=== PATIENT | female | born 1945 | race Caucasian/White ===

== ENCOUNTER → 2018-02-11 07:39 | Outpatient (CLI) | payer MEDICARE, BC, SELFPAY ==
[2018-02-11 07:57] LABS: Abs Immature Grans 0.02 k/cumm (0.0-0.09); Absolute Basophil Count 0.02 k/cumm (0.0-0.2); Absolute Lymphocyte Count 0.68 k/cumm (1.2-3.4); Absolute Monocyte Count 0.59 k/cumm (0.11-0.7); Absolute Neutrophil Count 4.96 k/cumm (1.2-6.7); Basophils % 0.3; Eosinophils % 1.6; HCT 40.6 % (36.0-46.0); HGB 13.4 g/dL (12.0-15.5); Immature Grans % 0.3; Lymphocytes % 10.7; Monocytes % 9.3; Neutrophils % 77.8; Platelet Count 293 x1000/uL (130-400); RBC 4.32 m/cumm (4.00-5.20); White Blood Cell Count 6.37 k/cumm (4.4-10.8)
[2018-02-11 08:10] LABS: ALT 20 U/L (12-78); AST 13 U/L (15-37); Alkaline Phosphatase 91 U/L (46-116); Anion Gap 8.8 mmol/L (3-11); BUN 19 mg/dL (7-18); Bilirubin, Total 0.4 mg/dL (0.2-1.0); CO2 26.2 mmol/L (21.0-32.0); CREATININE 1.16 mg/dL (0.55-1.02); Calcium 8.7 mg/dL (8.5-10.1); Chloride 105 mmol/L (98-107); Estimated GFR 45.67 (mL/min/1.73m2); Glucose 132 mg/dL (70-100); Sodium 140 mmol/L (136-145); Total Protein 6.8 g/dL (6.4-8.2)
== END ==
PROVIDERS: PCP Internal Medicine; Visit Provider Nurse Practitioner Adult Health
DX: C55 Malignant neoplasm of uterus, part unspecified (principal); C50.911 Malignant neoplasm of unspecified site of right female breast; F32.9 Major depressive disorder, single episode, unspecified
CPT/HCPCS: 36415; 80053; 85025

== ENCOUNTER 2018-03-11 10:45 | Outpatient (REF) | payer MEDICARE, BC, SELFPAY ==
[2018-03-11 19:06] LABS: COMMENT (LAB VIEW ONLY) 175.43 mg/dL; Microalb ug/mg Crea 19.2 ug/mg Cr
== END 2018-03-11 11:05 ==
LOC: NCHCN 10:45
PROVIDERS: PCP Internal Medicine; Visit Provider Internal Medicine
DX: E11.9 Type 2 diabetes mellitus without complications (principal)
CPT/HCPCS: 82043; 82570

== ENCOUNTER 2018-12-23 14:30 | Outpatient (CLI) | payer MEDICARE, BC, SELFPAY ==
[2018-12-23 15:02] LABS: ALT 24 U/L (12-78); AST 15 U/L (15-37); Albumin 3.2 g/dL (3.4-5.0); Alkaline Phosphatase 102 U/L (46-116); Anion Gap 11.9 mmol/L (3-11); BUN 21 mg/dL (7-18); Bilirubin, Total 0.4 mg/dL (0.2-1.0); CO2 24.1 mmol/L (21.0-32.0); CREATININE 1.23 mg/dL (0.55-1.02); Calcium 8.8 mg/dL (8.5-10.1); Chloride 106 mmol/L (98-107); Estimated GFR 42.57 (mL/min/1.73m2); Glucose 128 mg/dL (70-100); Sodium 142 mmol/L (136-145); Total Protein 6.5 g/dL (6.4-8.2)
== END 2018-12-23 14:50 ==
PROVIDERS: PCP Internal Medicine; Visit Provider Nurse Practitioner Adult Health
DX: C55 Malignant neoplasm of uterus, part unspecified (principal); C50.911 Malignant neoplasm of unspecified site of right female breast; F32.9 Major depressive disorder, single episode, unspecified
CPT/HCPCS: 36415; 80053

== ENCOUNTER 2019-04-11 15:28 | Outpatient (REF) | payer MEDICARE, BC, SELFPAY | END 2019-04-11 15:48 | LOC: NCHCO 15:28 | PROVIDERS: PCP Internal Medicine; Visit Provider Internal Medicine | DX: Z77.011 Contact with and (suspected) exposure to lead (principal); G58.8 Other specified mononeuropathies | CPT/HCPCS: 83655 ==

== ENCOUNTER 2019-05-26 13:31 | Outpatient (CLI) | payer MEDICARE, BC, SELFPAY ==
[2019-05-26 14:00] LABS: Abs Immature Grans 0.02 k/cumm (0.0-0.09); Absolute Basophil Count 0.02 k/cumm (0.0-0.2); Absolute Eosinophil Count 0.06 k/cumm (0.0-0.7); Absolute Lymphocyte Count 0.92 k/cumm (1.2-3.4); Absolute Monocyte Count 0.72 k/cumm (0.11-0.7); Absolute Neutrophil Count 4.74 k/cumm (1.2-6.7); Basophils % 0.3; Eosinophils % 0.9; Immature Grans % 0.3; Lymphocytes % 14.2; Mean Corp. HGB Concentration 32.6 g/dL (32.0-36.0); Mean Corpuscular Hemoglobin 30.6 pg (27.0-33.0); Mean Corpuscular Volume 93.9 fL (80-95); Mean Platelet Volume 8.8 fL (8.0-11.0); Monocytes % 11.1; Neutrophils % 73.2; Platelet Count 299 x1000/uL (130-400); RBC 4.58 m/cumm (4.00-5.20); RBC Distribution Width 14.1 % (11.7-14.6); White Blood Cell Count 6.48 k/cumm (4.4-10.8)
[2019-05-26 14:15] LABS: ALT 24 U/L (14-59); AST 13 U/L (15-37); Albumin 3.4 g/dL (3.4-5.0); Alkaline Phosphatase 94 U/L (46-116); Anion Gap 10.5 mmol/L (3-11); BUN 22 mg/dL (7-18); Bilirubin, Total 0.3 mg/dL (0.2-1.0); CO2 25.5 mmol/L (21.0-32.0); CREATININE 1.11 mg/dL (0.55-1.02); Chloride 104 mmol/L (98-107); Estimated GFR 47.79 (mL/min/1.73m2); Glucose 126 mg/dL (74-106); Potassium 4.4 mmol/L (3.5-5.1); Sodium 140 mmol/L (136-145); Total Protein 6.8 g/dL (6.4-8.2)
== END 2019-05-26 13:51 ==
PROVIDERS: PCP Internal Medicine; Visit Provider Nurse Practitioner Adult Health
DX: C50.911 Malignant neoplasm of unspecified site of right female breast (principal); C55 Malignant neoplasm of uterus, part unspecified; F32.9 Major depressive disorder, single episode, unspecified
CPT/HCPCS: 36415; 80053; 85025

== ENCOUNTER 2019-08-03 15:17 | Outpatient (REF) | payer MEDICARE, BC, SELFPAY | END 2019-08-03 15:37 | LOC: NCHCN 15:17 | PROVIDERS: PCP Internal Medicine; Visit Provider Physician Assistant | DX: N39.0 Urinary tract infection, site not specified (principal) | CPT/HCPCS: 87086 ==

== ENCOUNTER 2020-04-16 18:02 | Outpatient (REF) | payer MEDICARE, BC, SELFPAY ==
[2020-04-16 19:44] LABS: HCT 42.8 % (36.0-46.0); HGB 13.9 g/dL (11.2-15.7); MCH 31.3 pg (27.0-33.0); MCHC 32.5 % (32.0-36.0); MCV 96.4 fL (80-95); MPV 10.4 fL (8.0-11.0); Platelet Count 303 10^3/uL (130-400); RBC 4.44 10^6/uL (3.93-5.22); RDW 13.2 % (11.7-14.6); RDW-SD 46.7 fL; WBC 7.02 10^3/uL (4.4-10.8)
[2020-04-16 19:56] LABS: ALT 22 U/L (14-59); AST 15 U/L (15-37); Albumin 3.3 g/dL (3.4-5.0); Alkaline Phosphatase 91 U/L (46-116); Anion Gap 7.8 mmol/L (3-11); BUN 39 mg/dL (7-18); Bilirubin, Total 0.4 mg/dL (0.2-1.0); CO2 28.2 mmol/L (21.0-32.0); CREATININE 1.32 mg/dL (0.55-1.02); Calcium 9.2 mg/dL (8.5-10.1); Chloride 104 mmol/L (98-107); Estimated GFR 39.03 (mL/min/1.73m2); Glucose 86 mg/dL (74-106); Potassium 4.8 mmol/L (3.5-5.1); Sodium 140 mmol/L (136-145); Total Protein 6.3 g/dL (6.4-8.2)
== END 2020-04-16 18:22 ==
LOC: NCHCN 18:02
PROVIDERS: PCP Internal Medicine; Visit Provider Internal Medicine
DX: K58.9 Irritable bowel syndrome, unspecified (principal); F33.9 Major depressive disorder, recurrent, unspecified; N32.81 Overactive bladder
CPT/HCPCS: 80053; 85027

== ENCOUNTER 2020-09-10 15:43 | Outpatient (REF) | payer MEDICARE, BC, SELFPAY ==
--- OUTSIDE RECORDS SUMMARY | 2020-09-10 16:08 | XMS_ITS | Encounter Summary ---
:1945 Author Care Team Providers Name Role Phone Ilan Zepeda MD Primary Care Provider [phone] [facility] OTHER [phone] Romulo Barrera MD General Surgeon [phone] Reason for Visit Phone Call Visit Assessment and Plan Assessment Note The patient is home. The provider is in the office . The patient has been positively identif ied and has consented to a telephone visit. The time spent in counseling and coordi nation of care was 22 minutes 1. Periodic limb movement disord er 04/21/16 Diagnostic Polysomn ogram PLM index 32.3/hr. PLM Arousal index 3/hr 04/2017 PLMD labs were all normal 03/03/17 Titration Polysomnogram PLM in dex 32.9/hr. PLM Arousal index 5.3/hr. 04/07/18: she is very symptomatic, includ ing falling out of bed and excess movements making it hard to even use cpap; safety measures discussed and also start self titration dose of requip 12/20/18: she feels requip is helpful, wo uld wake up with RLS if not taking it. she's taking 1mg, when she stopped, she would like refills. 12/12/19: she's not using requip, we will try gabapentin 100mg as she has neuropathy and RLS 01/23/20: good relief of RLS w/ gabapenti n 100mg no side efx, but numbness/tingling in feet no change, will inc to 200mg to see if this will be better. phone visit in 6 weeks to check on progress. would consider increasing to 300mg if no side efx. 03/06/20: most nights gabapentin 200mg is adequately except some messy sheets, last night went to bed late so very bad RLS. advised to increase to 300mg qHS and use 100mg PRN 07/24/20: no side efx on 300mg qHS and sh e feels benefit (if she stops she actually feels more unsteady on her feet. sheets are less messy on this med after sleep too). she wants to try 400mg qHS and I t hink that's fine, as long as she careuly monitors sedation and other side efx. ? gabapentin 100 mg capsule 2. Insomnia 04/07/18: using silenor PRN, no t very often. 12/20/18: she thinks she could use sileno r about 1/3 of the nights, tho she hasnt lately and wishes to try again. gave refills. she can go up to 2 tablets (=6mg) if needed. Her mood is dramatically impro oma compared to previous visits, she say s seeing a therapist helped her tremendously. 12/12/19: she is using silenor 6mg PRN (ab out 3 nts a week) and this is working well, refills given 01/23/20: has not used silenor in last mo nth but has it PRN 03/06/20: not needed silenor as gabapentin working so well for her RLS 3. Cramp in lower limb associate d with sleep 04/07/18: start Mg G for leg cr amps PRN, may also help her anxiety at night. If she does not get loose stools and find it helpful, can take it nightly if needed. 12/20/18: finds good results PRN but stil l getting cramps and advised her to try taking daily. she is not having side efx, still constipated in fact. 12/12/19: on mg g 500mg daily, refills giv en. 01/23/20, 03/06/20: cont Mg G 500mg qAM (so it's not same time as her gabapentin in evening). working well no side efx. 4. Hypersomnia 12/20/18: ESS 14, she feels thi s is fine for her. she never feels drowsy driving. does not wish to try any medications for this. she is getting vit D supplement OTC per PCP. 01/23/20: ESS at 5 today. excellent. 03/06/20: ESS 4 today Discussion Note: None recorded.Patient educational handouts: No information available. Plan of Care Patient Instructions 2 month follow up Reminders Provider Appointments Hme 20 05/23/2021 Demian Weiss MD 1:20PM ? Return to on or around Romulo Barrera MD Office 05/09/2023 Lab None ? ? recorded. Referral None ? ? recorded. Procedures None ? ? recorded. Surgeries None ? ? recorded. Imaging None ? ? recorded. Medications Name Start Date ? ? amlodipine 10 mg tablet ? Take 10 mg every 24 hours by oral route. atenolol 50 mg tablet ? atorvastatin 40 mg tablet ? Take 40 mg by oral route. bupropion HCl SR 150 mg tablet,12 hr sustained-release ? Take 150 mg every 24 hours by oral route. Calcium 600 + D(3) 07/11/2019 doxepin 3 mg tablet ? TAKE 1-2 TABLETS BY MOUTH AT BEDTIME Flonase 50 mcg/actuation nasal spray,suspension 2019 [place] 1 spray every day by intranasal route as needed . fluoxetine 20 mg capsule ? fluoxetine 20 mg tablet 07/11/2019 Take 2 tablets every day by oral route. gabapentin 100 mg capsule ? take up to 4 tabs qHS for restless legs magnesium gluconate 27 mg magnesium (500 mg) tablet ? Take 1 tablet every day by oral route in the morning. Myrbetriq 25 mg tablet,extended release ? oxybutynin chloride ER 5 mg tablet,extended release 24 hr ? pantoprazole 40 mg tablet,delayed release ? Take 40 mg every 24 hours by oral route. ProAir HFA 90 mcg/actuation aerosol inhaler 07/11/2019 Inhale 2 puffs every 4-6 hours by inhalation route as needed. Shingrix (PF) 50 mcg/0.5 mL intramuscular suspension, kit ? spironolactone 50 mg tablet ? Take 1 tablet every day by oral route. Notes: reviewed with pt. 01/18/19 Medications Administered None recorded. Vitals Height Weight BMI 5 ft 2.5 in 245 lbs 44.1 kg/m2 Results Lab Results None recorded. Allergies Code Code System Name Reaction Severity Onset 663410 RxNorm Vicodin Hallucinations ? ? NKDA ? ? ? Notes: pain pill that she cannot remember the name ofreviewed 01/18 Problems Name Status Onset Date Source ? History of Malignant Neoplasm of Active 04/13/2019 ? 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 History Breast Vitamin D Deficiency Active ? History Hyperlipidemia Active ? History Obesity Active ? ? Depressive Disorder Active ? History Insomnia Active ? History Obstructive Sleep Apnea Syndrome Active ? History Periodic Limb Movement Disorder Active ? History Hypertensive Disorder Active ? History Allergic Rhinitis Active ? History Asthma Active ? History Gastroesophageal Reflux Disease Active ? ? Hernia of Anterior Abdominal Wall Active ? ? Joint Pain Active ? History Spinal Stenosis of Lumbar Region Active ? ? Low Back Pain Active ? History Osteopenia Active ? ? Lack of Energy Active ? History Closed Fracture of Fifth Metatarsal Active ? History Bone Compression Fracture Active ? ? Bereavement Active ? History Procedures Date Name Performed by ? 07/09/2019 Cholecystectomy Laparoscopic Information not available Notes: acute cholecystitis 02/14/2014 Partial Mastectomy Information not avai lable Notes: Right and axilla node velia- sec ond margin done 02/24/2014 12/16/2012 Robot Assisted Laparoscopic Total Hyster ectomy Information not available Notes: with BSO, lymph node sampling 07/06/2012 Lumpectomy Information not avai lable Notes: Right breast cancer follow up radiation 07/06/1956 Appendectomy Information not avai lable ? Ankle Surgery Information not avai lable Notes: ORIF ? Orthopedic Surgery Information not avai lable Notes: Right elbow for fracture Vaccine List None recorded. Social History Tobacco Smoking Status Former Smoker Notes: Smoked 1/2 PPD - Quit 50 years Alcohol intake Occasional Notes: Drinks arnel ry night for couple of months when she lives with her son in [place]. Live alone or with others? alone Notes: stevie vargas during the summer, winter lives with son Are you currently employed? N Blind or serious difficulty Notes: we ars glasses seeing Hard of hearing or deaf in one Y Notes: slight hearing or both ears? 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 Past Encounters 07/24/2020 Periodic Limb Movement Disorder; Insomni a; Cramp in Lower Limb Associated with Sleep; Hypersomnia Ivon Wen MD, Board Certified Sleep Ph ysician: [facility] [place] [address], Ph. History of Present Illness Note: The patient is home. The provider is {{home in the office}}.

The patient has been positively identified and has consented to a telephone visit.

The time spent in counseling and coordination of care was

<p>
</p> Review of Systems None recorded. Physical Exam None recorded.
--- OUTSIDE RECORDS SUMMARY | 2020-09-10 16:08 | XMS_ITS ---
:1945 Author Care Team Providers Name Role Phone KARAN RICHTER MD Primary Care Provider [phone] [facility] OTHER [phone] ROMULO BARRERA MD General Surgeon [phone] Allergies Code Code System Name Reaction Severity Status Onset 564066 RxNorm Vicodin Hallucinations ? Active ? NKDA ? Notes: pain pill that she cannot remember the name ofreviewed 01/18 Medications Name Status Start Date Stop Date ? ? amlodipine 10 mg tablet Active ? Not avai lable anastrozole 1 mg tablet Completed ? 07/11/19 20 atenolol 50 mg tablet Active ? Not availa ble atorvastatin 40 mg tablet Active ? Not av ailable bupropion HCl SR 150 mg Active ? Not avai lable tablet,12 hr sustained-release Calcium 600 + D(3) Active 07/11/2019 Not available Cipro 500 mg tablet Completed 03/04/2007 03/22/2007 1 (one) Tablet: BID doxepin 3 mg tablet Active ? Not availabl e Flonase 50 mcg/actuation nasal spray,suspension Active 07/11/2019 Not available [place] 1 spray every day by intranasal route as needed. fluoxetine 20 mg capsule Active ? Not whit ilable fluoxetine 20 mg tablet Active 07/11/2019 Not avai lable Take 2 tablets every day by oral route. gabapentin 100 mg capsule Active ? Not av ailable take up to 4 tabs qHS for restless legs gatifloxacin 0.5 % eye drops Completed ? hydrocodone 5 mg-acetaminophen Completed ? 0 07/11/2019 325 mg tablet ibuprofen 800 mg tablet Completed ? 04/13/20 19 Take 1 tablet 3 times a day by oral route. Keflex 500 mg capsule Completed 02/10/2007 03/22/2007 2 (two) Capsule: TID ketoconazole 2 % shampoo Completed ? 020 ketorolac 0.4 % eye drops Completed ? 2018 magnesium gluconate 27 mg magnesium (500 mg) tablet Active ? Not available Take 1 tablet every day by oral route in the morning. Myrbetriq 25 mg tablet,extended Active ? Not available release nitrofurantoin Completed ? 01/23/2020 monohydrate/macrocrystals 100 mg capsule Norvasc 5 mg tablet Completed 03/17/2007 03/31/2014 1 (one) Tablet: Daily omeprazole 20 mg tablet,delayed release Completed ? 07/11/2019 Take 1 tablet every day by oral route. oxybutynin chloride ER 5 mg Active ? Not available tablet,extended release 24 hr pantoprazole 40 mg Active ? Not available tablet,delayed release prednisolone acetate 1 % eye Completed ? 03/2019 drops,suspension ProAir HFA 90 mcg/actuation aerosol inhaler Active 12/2019 Not available Inhale 2 puffs every 4-6 hours by inhalation route as needed. ropinirole 1 mg tablet Completed ? 9 Shingrix (PF) 50 mcg/0.5 mL Active ? Not available intramuscular suspension, kit spironolactone 50 mg tablet Active ? Not available tramadol 50 mg tablet Completed ? 01/23/2020 zolpidem 5 mg tablet Completed 06/18/2016 04/22/2017 1 (one) Tablet Tablet: qhs - at bedtime Notes: reviewed with pt. 01/18/19 Problems Name Status Onset Date Source ? History of Malignant Neoplasm of Active 04/13/2019 ? 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 History Breast Endometrial Carcinoma Unknown ? ? Vitamin D Deficiency Active ? History Hyperlipidemia [...] cholecystitis 02/14/2014 Partial Mastectomy Information not avai labtia Notes: Right and axilla node velia- sec [...] avai lable Notes: Right elbow for fracture 01/26/2018 MRI, Cervical Spine, W/o Contrast [facility] (Internal) [address] [place] [address] (Work Place) 01/18/2019 MRI, Lumbar Spine, W/o Contrast [facility] Radiology (Internal) [address] [place] [address] (Work Place) 01/18/2019 XR, Eye, for Foreign Body [facility] (Internal) [address] [place] [address] (Work Place) 01/19/2019 MRI, Thoracic Spine, W/o Contrast [facility] (Internal) [address] [place] [address] (Work Place) Results Lab Results Date Name Specimen Result Interpretation Description Value Range Status Address ? 07/11/2019 CBC W/ Auto BLD - Wbc 9.8 10*3/uL 5.0-10.0 F inal [place] Diff 10*3/uL [facility] L ab (Internal) : [address] ? ? BLD Low Rbc 3.45 4.10-5.30 Final [place] 10*6/uL 10*6/uL [facility] L ab (Internal) : [address] ? ? BLD Low Hgb 10.5 g/dL 12.0-16.0 Final Nort h g/dL [facility] L ab (Internal) : [address] ? ? BLD Low Hct 33.5 % 37.0-47.0 Final [facility] L ab (Internal) : [address] ? ? BLD High Mcv 97.1 fL 80.0-96.0 Final [facility] L ab (Internal) : [address] ? ? BLD - Mch 30.4 pg 26.0-32.0 [facility] [address] ? ? BLD - Mchc 31.3 g/dL 31.0-35.0 Final Nort [facility] g/dL [facility] ([facility] : [address] ? ? BLD High Rdw 15.1 % 11.5-14.5 Final [facility] (Internal[facility] : [address] ? ? BLD - Plt 201 10*3/uL 130-450 Final Nort h 10*3/uL [facility] (Internal[facility] : [address] 07/11/2019 CMP, Serum S High g/r 114 mg/dL 74-106 Final [facility] or Plasma mg/dL [facility] (Internal) : [address] ? ? S - Bun 17 mg/dL 7-17 Final [place] mg/dL [facility] (Internal) : [address] ? ? S - Crea 1.00 mg/dL 0.52-1.04 Final Nor th mg/dL [facility] (Internal) : [address] ? ? S - Ca 8.9 mg/dL 8.4-10.2 Final [facility] mg/dL [facility] (Internal) : [address] ? ? S Low Na 135 mmol/L 137-145 Final [place] mmol/L [facility] (Internal) : [address] ? ? S - K 4.6 mmol/L 3.5-5.1 Final [place] mmol/L [facility] (Internal) : [address] ? ? S - Cl 105 mmol/L 98-107 Final [place] mmol/L [facility] (Internal) : [address] ? ? S Low Tco2 21.0 mmol/L 22.0-30.0 Final No rth mmol/L [facility] (Internal) : [address] ? ? S Low Tp 5.5 g/dL 6.3-8.2 Final [facility] g/dL [facility] (Internal) : [address] ? ? S Low Alb 2.7 g/dL 3.5-5.0 Final [place] g/dL [facility] L ab (Internal) : [address] ? ? S - Tbil 0.9 mg/dL 0.2-1.3 Final [place] mg/dL [facility] L ab (Internal) : [address] ? ? S High Alp 204 U/L 38-126 Final [place] U/L [facility] L ab (Internal) : [address] ? ? S High Alt 207 U/L 9-52 U/L Final [place] (Sgpt) [facility] L ab (Internal) : [address] ? ? S High Ast 58 U/L 14-36 U/L Final [place] (Sgot) [facility] L ab (Internal) : [address] 07/11/2019 Lipase, S - Lip <30 U/L 23-300 Final Nort h Serum or U/L [facility] Hospital L ab (Internal) : [address] 07/11/2019 Differential BLD High Polys 90 % 40-75 % Final [facility], [facility] L ab (Internal) : [address] ? ? BLD - Bands 3 % 0-5 % Final [facility] L ab (Internal) : [address] ? ? BLD Low Lymphs 2 % 20-50 % Final [facility] L ab (Internal) : [address] ? ? BLD - Jenkins 5 % 2-10 % Final [facility] L ab (Internal) : [address] ? ? BLD - Eos 0 % 0-6 % Final [facility] L ab (Internal) : [address] ? ? BLD - Baso 0 % 0-1 % Final [facility] L ab (Internal) : [address] ? ? BLD - Atyp 0 % ? Final [facility] L ab (Internal) : [address] ? ? BLD - Plts, adequate adequate Final [facility] L ab (Internal) : [address] ? ? BLD - RBC normal normal Final [facility] L ab (Internal) : [address] 07/11/2019 Neutrophil BLD - Anc-manua 9.12 ? Final [place] Count, l 10*3/uL [facility] Lab (Anc), Blood (Int ernal): [address] 07/10/2019 CBC W/ Auto BLD High Wbc 10.6 5.0-10.0 Final [place] Diff 10*3/uL 10*3/uL [facility] L ab (Internal) : [address] nuno ? ? BLD Low Rbc 3.70 4.10-5.30 Final [place] 10*6/uL 10*6/uL [facility] L ab (Internal) : [address] ? ? BLD Low Hgb 11.2 g/dL 12.0-16.0 Final Nort h g/dL [facility] L ab (Internal) : [address] ? ? BLD Low Hct 35.6 % 37.0-47.0 Final [facility] L ab (Internal) : [address] nuno ? ? BLD High Mcv 96.2 fL 80.0-96.0 Final [facility] L ab (Internal) : [address] nuno ? ? BLD - Mch 30.3 pg 26.0-32.0 Final [facility] L ab (Internal) : [address] ? ? BLD - Mchc 31.5 g/dL 31.0-35.0 Final Nort h g/dL [facility] L ab (Internal) : [address] ? ? BLD High Rdw 14.9 % 11.5-14.5 Final [facility] L ab (Internal) : [address] ? ? BLD - Plt 205 10*3/uL 130-450 Final Nort h 10*3/uL [facility] L ab (Internal) : [address] 07/10/2019 Differential BLD High Polys 86 % 40-75 % Final [place] , [facility], [facility] L ab (Internal) : [address] ? ? BLD - Bands 2 % 0-5 % Final [facility] L ab (Internal) : [address] ? ? BLD Low Lymphs 2 % 20-50 % Final [facility] L ab (Internal) : [address] ? ? BLD - Jenkins 10 % 2-10 % Final [facility] L ab (Internal) : [address] ? ? BLD - Eos 0 % 0-6 % Final [facility] L ab (Internal) : [address] ? ? BLD - Baso 0 % 0-1 % Final [facility] L ab (Internal) : [address] ? ? BLD - Atyp 0 % ? Final [facility] L ab (Internal) : [address] ? ? BLD - Plts, adequate adequate Final [facility] (Internal) : [address] ? ? BLD - RBC normal normal Final [facility] L ab (Internal) : [address] 07/10/2019 Neutrophil BLD - Anc-manua 9.29 ? Final [place] Count, l 10*3/uL [facility] Hospital Lab (Anc), Blood (Int ernal): [address] 07/10/2019 CMP, Serum S High g/r 195 mg/dL 74-106 Final North or Plasma mg/dL [facility] L ab (Internal) : [address] ? ? S High Bun 21 mg/dL 7-17 Final [place] mg/dL [facility] L ab (Internal) : [address] ? ? S High Crea 1.10 mg/dL 0.52-1.04 Final Nor th mg/dL [facility] L ab (Internal) : [address] ? ? S - Ca 8.8 mg/dL 8.4-10.2 Final [place] mg/dL [facility] L ab (Internal) : [address] ? ? S Low Na 135 mmol/L 137-145 Final [place] mmol/L [facility] L ab (Internal) : [address] ? ? S - K 4.4 mmol/L 3.5-5.1 Final [facility] mmol/L [facility] ([facility] : [address] ? ? S - Cl 106 mmol/L 98-107 Final [facility] mmol/L [facility] (Internal) : [address] ? ? S Low Tco2 20.0 mmol/L 22.0-30.0 Final No rth mmol/L [facility] (Internal) : [address] ? ? S Low Tp 5.8 g/dL 6.3-8.2 Final [facility] g/dL [facility] (Internal) : [address] ? ? S Low Alb 2.9 g/dL 3.5-5.0 Final [facility] g/dL [facility] (Internal) : [address] ? ? S High Tbil 4.1 mg/dL 0.2-1.3 Final [facility] mg/dL [facility] (Internal) : [address] ? ? S High Alp 249 U/L 38-126 Final [facility] U/L [facility] (Internal) : [address] ? ? S High Alt 358 U/L 9-52 U/L Final [place] (Sgpt) [facility] (Internal) : [address] ? ? S High Ast 188 U/L 14-36 U/L Final [place] (Sgot) [facility] (Internal) : [address] 07/09/2019 CMP, Serum S High g/r 137 mg/dL 74-106 Final [place] or Plasma mg/dL [facility] (Internal) : [address] ? ? S High Bun 27 mg/dL 7-17 Final [facility] mg/dL [facility] (Internal) : [address] ? ? S High Crea 1.10 mg/dL 0.52-1.04 Final Nor [facility] mg/dL [facility] (Internal) : [address] ? ? S - Ca 9.2 mg/dL 8.4-10.2 Final [facility] mg/dL [facility] (Internal) : [address] ? ? S Low Na 136 mmol/L 137-145 Final [place] mmol/L [facility] L ab (Internal) : [address] ? ? S - K 4.0 mmol/L 3.5-5.1 Final [place] mmol/L [facility] L ab (Internal) : [address] ? ? S - Cl 103 mmol/L 98-107 Final [place] mmol/L [facility] L ab (Internal) : [address] ? ? S Low Tco2 21.0 mmol/L 22.0-30.0 Final No rth mmol/L [facility] (Internal) : [address] ? ? S - Tp 6.5 g/dL 6.3-8.2 Final [place] g/dL [facility] L ab (Internal) : [address] ? ? S Low Alb 3.4 g/dL 3.5-5.0 Final [place] g/dL [facility] L ab (Internal) : [address] ? ? S High Tbil 1.6 mg/dL 0.2-1.3 Final [place] mg/dL [facility] L ab (Internal) : [address] ? ? S High Alp 184 U/L 38-126 Final [place] U/L [facility] L ab (Internal) : [address] ? ? S High Alt 242 U/L 9-52 U/L Final [place] (Sgpt) [facility] L ab (Internal) : [address] ? ? S High Ast 138 U/L 14-36 U/L Final [place] (Sgot) [facility] L ab (Internal) : [address] 07/09/2019 Lipase, S - Lip <30 U/L 23-300 Final Nort h Serum or U/L [facility] (Internal) : [address] 07/09/2019 CBC W/ Auto BLD - Wbc 9.1 10*3/uL 5.0-10.0 F inal [place] Diff 10*3/uL [facility] (Internal) : [address] ? ? BLD Low Rbc 3.97 4.10-5.30 Final North 10*6/uL 10*6/uL [facility] L ab (Internal) : [address] ? ? BLD - Hgb 12.1 g/dL 12.0-16.0 Final Nort h g/dL [facility] L ab (Internal) : [address] ? ? BLD - Hct 37.8 % 37.0-47.0 Final [facility] L ab (Internal) : [address] ? ? BLD - Mcv 95.2 fL 80.0-96.0 Final [facility] L ab (Internal) : [address] ? ? BLD - Mch 30.5 pg 26.0-32.0 Final [facility] L ab (Internal) : [address] ? ? BLD - Mchc 32.0 g/dL 31.0-35.0 Final Nort h g/dL [facility] L ab (Internal) : [address] ? ? BLD High Rdw 14.9 % 11.5-14.5 Final [facility] L ab (Internal) : [address] ? ? BLD - Plt 223 10*3/uL 130-450 Final Nort h 10*3/uL [facility] L ab (Internal) : [address] 07/09/2019 Troponin I, S - Trop <0.06 NG/mL 0.00-0.06 Final [place] Serum or NG/mL [facility] L ab (Internal) : [address] 07/09/2019 Differential BLD High Polys 95 % 40-75 % Final [facility] Blood Hospital L ab (Internal) : [address] ? ? BLD - Bands 0 % 0-5 % Final [facility] L ab (Internal) : [address] ? ? BLD Low Lymphs 1 % 20-50 % Final [facility] L ab (Internal) : [address] ? ? BLD - Jenkins 4 % 2-10 % Final [facility] L ab (Internal) : [address] ? ? BLD - Eos 0 % 0-6 % Final [facility] L ab (Internal) : [address] ? ? BLD - Baso 0 % 0-1 % Final [facility] L ab (Internal) : [address] ? ? BLD - Atyp 0 % ? Final [facility] L ab (Internal) : [address] ? ? BLD - Plts, adequate adequate Final [facility] L ab (Internal) : [address] ? ? BLD ABNORMAL RBC abnormal normal Final [facility] L ab (Internal) : [address] ? ? BLD - Jack rare ? Final [facility] L ab (Internal) : [address] ? ? BLD - Polychrom occasional ? Final No rth [facility] L ab (Internal) : [address] 07/09/2019 Neutrophil BLD - Anc-manua 8.64 ? Final [place] Count, l 10*3/uL [facility] Lab (Anc), Blood (Int ernal): [address] 07/09/2019 Urinalysis, UR - UA-color yellow pale Final [place] Dipstick, yellow [facility] Lab (Internal) : [address] ? ? UR - UA-appear clear clear Final [facility] ab (Internal) : [address] ? ? UR - UA-spec 1.010 1.003-1.0 Final [place] Grav [address] [place] [address] L ab (Internal) : [address] ? ? UR - UA-pH 5.5 [pH] 4.6-8.0 Final [place] [pH] [facility] L ab (Internal) : [address] ? ? UR - UA-leuk negative negative Final Nort [facility] L ab (Internal) : [address] ? ? UR - UA-nitrit negative negative Final No rth e [facility] L ab (Internal) : [address] ? ? UR - UA-prot negative negative Final Nort h [facility] L ab (Internal) : [address], [place] ? ? UR - UA-gluc negative negative Final Nort [facility] L ab (Internal) : [address] ? ? UR - UA-ketone negative negative Final No rth [facility] L ab (Internal) : [address] ? ? UR - UA-urobil normal normal Final [facility] L ab (Internal) : [address] ? ? UR - UA-bili negative negative [facility] [address] ? ? UR - UA-blood negative negative Final [facility] L ab (Internal) : [address] 07/09/2019 Pathology TISS - Report (see below) ? Sadie stephens [facility] ab (Internal) : [address] 06/13/2019 CBC W/ Auto BLD High Wbc 10.3 5.0-10.0 Final [place] Diff 10*3/uL 10*3/uL [facility] L ab (Internal) : [address] ? ? BLD Low Rbc 4.02 4.10-5.30 Final [place] 10*6/uL 10*6/uL [facility] L ab (Internal) : [address] ? ? BLD - Hgb 12.3 g/dL 12.0-16.0 Final [facility] h g/dL [facility] ab (Internal) : [address] ? ? BLD - Hct 37.9 % 37.0-47.0 Final [facility] L ab (Internal) : [address] ? ? BLD - Mcv 94.3 fL 80.0-96.0 Final [facility] L ab (Internal) : [address] ? ? BLD - Mch 30.6 pg 26.0-32.0 Final [facility] L ab (Internal) : [address] ? ? BLD - Mchc 32.5 g/dL 31.0-35.0 Final [facility] h g/dL [facility] L ab (Internal) : [address] ? ? BLD - Rdw 13.2 % 11.5-14.5 Final [facility] (Internal[facility] : [address] ? ? BLD - Plt 297 10*3/uL 130-450 Final Nort h 10*3/uL [facility] (Internal) : [address] 06/13/2019 CMP, Serum S - g/r 98 mg/dL 74-106 Final North or Plasma mg/dL [facility] (Internal) : [address] ? ? S - Bun 15 mg/dL 7-17 Final [facility] mg/dL [facility] (Internal) : [address] ? ? S - Crea 0.80 mg/dL 0.52-1.04 Final [facility] mg/dL [facility] (Internal) : [address] ? ? S - Ca 9.5 mg/dL 8.4-10.2 Final [facility] mg/dL [facility] (Internal) : [address] ? ? S - Na 139 mmol/L 137-145 Final [facility] mmol/L [facility] (Internal) : [address] ? ? S - K 4.1 mmol/L 3.5-5.1 Final [facility] mmol/L [facility] (Internal) : [address] ? ? S - Cl 99 mmol/L 98-107 Final [facility] mmol/L [facility] (Internal) : [address] ? ? S - Tco2 27.0 mmol/L 22.0-30.0 Final No rth mmol/L [facility] ab (Internal) : [address] ? ? S - Tp 6.7 g/dL 6.3-8.2 Final [facility] g/dL [facility] (Internal) : [address] ? ? S - Alb 3.5 g/dL 3.5-5.0 Final [facility] g/dL [facility] (Internal) : [address] ? ? S - Tbil 0.6 mg/dL 0.2-1.3 Final [facility] mg/dL [facility] (Internal) : [address] ? ? S - Alp 88 U/L 38-126 Final North U/L [facility] L ab (Internal) : [address] ? ? S - Alt 22 U/L 9-52 U/L Final [place] (Sgpt) [facility] L ab (Internal) : [address] ? ? S - Ast 34 U/L 14-36 U/L Final [place] (Sgot) [facility] L ab (Internal) : [address] 06/13/2019 Urinalysis, UR - UA-color yellow pale Final [place] Dipstick, yellow [facility] Lab (Internal) : [address] ? ? UR - UA-appear clear clear Final [facility] L ab (Internal) : [address] ? ? UR - UA-spec 1.010 1.003-1.0 Final [place] Grav 35 [facility] L ab (Internal) : [address] ? ? UR - UA-pH 6.0 [pH] 4.6-8.0 Final [place] [pH] [facility] L ab (Internal) : [address] ? ? UR - UA-leuk negative negative Final Nort h [facility] L ab (Internal) : [address] ? ? UR - UA-nitrit negative negative Final No rth e [facility] ab (Internal) : [address] ? ? UR - UA-prot negative negative Final Nort [facility] L ab (Internal) : [address] ? ? UR - UA-gluc negative negative Final Nort h [facility] L ab (Internal) : [address] ? ? UR ABNORMAL UA-ketone trace negative Final No rth [facility] L ab (Internal) : [address] ? ? UR - UA-urobil normal normal Final [facility] ab (Internal) : [address] ? ? UR - UA-bili negative negative Final Nort [facility] ab (Internal) : [address] ? ? UR - UA-blood negative negative Final Nor [facility] L ab (Internal) : [address] 06/13/2019 Differential BLD High Polys 79 % 40-75 % Final [place] , Manual, [facility] Hospital L ab (Internal) : [address] ? ? BLD - Bands 0 % 0-5 % Final [facility] L ab (Internal) : [address] ? ? BLD Low Lymphs 12 % 20-50 % Final [facility] L ab (Internal) : [address] ? ? BLD - Jenkins 9 % 2-10 % Final [facility] L ab (Internal) : [address] ? ? BLD - Eos 0 % 0-6 % Final [facility] L ab (Internal) : [address] ? ? BLD - Baso 0 % 0-1 % Final [facility] L ab (Internal) : [address] ? ? BLD - Atyp 0 % ? Final [facility] L ab (Internal) : [address] ? ? BLD - Plts, adequate adequate [facility] [place] [facility] [address] ? ? BLD - RBC normal normal Final [facility] L ab (Internal) : [address] 06/13/2019 Neutrophil BLD - Anc-manua 8.17 ? Final [place] Count, l 10*3/uL [facility] Hospital Lab (Anc), Blood (Int ernal): [address] 02/01/2019 T4, Free, S - Ft4 1.11 NG/dL 0.78-2.19 Fin [facility] Serum NG/dL [facility] L ab (Internal) : [address] 02/01/2019 Folate, S - Folate >17.00 2.76-20.0 Final [facility] Serum NG/mL 0 NG/mL [facility] L ab (Internal) : [address] 02/01/2019 Vitamin B12, S - Vit B12 577.0 pg/mL 239.0-9 31 Final [place] Serum .0 pg/mL [facility] L ab (Internal) : [address] 02/01/2019 TSH, Serum S - Tsh 1.76 0.47-4.68 Final [place] or Plasma u[IU]/mL u[IU]/mL Cou [facility] L ab (Internal) : [address] 02/01/2019 CK (Creatine S - Cpk 87 U/L 30-135 Final [place] Kinase), U/L Country Total, Serum Hosp ital Lab (Internal) : [address] 02/01/2019 Borrelia S - Lyme negative ? Final No rth [place] Antibody Cou ntry Ab, [facility] Lab Immunoassay, (Int ernal): Serum [address] 02/01/2019 Immunofixati S Low Total 6.0 g/dL 6.3-8.2 Sadie l [place] on + Protein Protein g/dL Cou ntr Electrophore Hosp ital Lab sis + Free (Inter nal): Light [address] [place] Serum ? ? S - Albumin 58.2 % 55.8-66.1 Final [facility] L ab (Internal) : [address] nuno ? ? S High Alpha 1 5.4 % 2.9-4.9 % Final [facility] L ab (Internal) : [address] t ? ? S High Alpha 2 14.4 % 7.1-11.8 Final [facility] L [facility] (Internal) : [address] ? ? S High Beta 13.5 % 8.4-13.1 Final [facility] (Internal) : [address] nuno ? ? S Low Gamma 8.5 % 11.1-18.8 Final [facility] (Internal) : [address] t ? ? S - Comments see below ? Final Nort h [facility] L ab (Internal) : [address] nuno ? ? S - Immunotyp see below ? Final Nor ing, Serum [facility] L ab (Internal) : [address], Aly t 04/22/2017 Venipuncture BLD ? Venpn* ? ? Final [facility] L [facility] (Internal) : [address] 04/22/2017 Vitamin D, S ? 25-Hydrox <4.0 NG/mL ? F inal [place] 25-Hydroxy, y D2 Count ry Total, Serum [facility]osp [facility] (Internal) : [address] t ? ? S ? 25-Hydrox 39 NG/mL ? Final Nort h y D3 [facility] L ab (Internal) : [address] t ? ? S ? 25-Hydrox 39 NG/mL ? Final Nort h y D Total [facility] (Internal) : [address] 02/05/2017 Venipuncture BLD ? Venpn* ? ? Final [facility] (Internal) : [address] 02/05/2017 TSH, Serum S ? Tsh 1.81 0.47-4.68 Final [place] or Plasma u[IU]/mL u[IU]/mL [facility] L ab (Internal) : [address] 02/05/2017 Ferritin, S ? Ferr 92 NG/mL 11-264 Final N orth Serum or NG/mL [facility] L ab (Internal) : [address] Past Encounters 07/24/2020 Periodic Limb Movement Disorder; Insomni a; Cramp in Lower Limb Associated with Sleep; Hypersomnia Ivon Wen MD, Board Certified Sleep Ph ysician: [address] [place] [address], Ph. 05/23/2020 History of Malignant Neoplasm of Endomet rium Demian Root MD: [address] [place] [address], Ph. 03/06/2020 Periodic Limb Movement Disorder; Insomni a; Cramp in Lower Limb Associated with Sleep; Hypersomnia Ivon Wen MD, Board Certified Sleep Ph ysician: [address] [place] [address], Ph. 01/23/2020 Periodic Limb Movement Disorder; Insomni a; Cramp in Lower Limb Associated with Sleep; Obstructive Sleep Apnea Syndrome; Hypersomnia Ivon Wen MD, Board Certified Sleep Ph ysician: [address] [facility] [place] [address], Ph. 12/12/2019 Periodic Limb Movement Disorder; Insomni a; Cramp in Lower Limb Associated with Sleep Ivon Wen MD, Board Certified Sleep Ph ysician: [address] [place] [address], Ph. 08/02/2019 Cholecystitis Romulo Barrera MD: [address] [place] [address], Ph. 04/13/2019 Gynecologic Examination; History of Kelly gnant Neoplasm of Endometrium Demian Root MD: [address] [place] [address], Ph. Social History Tobacco Smoking Status Former Smoker Notes: Smoked 1/2 PPD - Quit 50 years Vaccine List None recorded. Plan of Care Patient Instructions 2 month follow up 1. For your leg movements in your s leep and feet numbness/tingling/pain: We will increase Gabapentin 100mg to 2 tabs at bedtime. 2. Your cpap therapy looks excellent. Ke ep up the good work in using it. It has reduced your apneas from about 30 times per hour down to less than 2 times an hour! This is great! 3. For your leg cramps, you can continue Magnesium Gluconate 500mg 1 tablet daily. 4. Continue Silenor 1 to 2 tablets at be dtime for insomnia (as needed) 5. We will have a phone visit in about 6 weeks to see how you are doing on the new dose and decide whether we should keep going up on the dose. For in person visit, we will plan for follow up in about 1 year. Please call sleep clinic sooner w ith any questions or concerns. Reminders Provider Appointments None recorded. ? ? Lab None recorded. ? ? Referral None recorded. ? ? Procedures None recorded. ? ? Surgeries None recorded. ? ? Imaging None recorded. ? ? Vitals 07/24/2020 10:45AM Office 30 Height Weight BMI 158.75 cm 111.13 kg 44.1 kg/m2 05/23/2020 02:30PM Office 20 Height Weight BMI Blood Pressure 158.75 cm 111.13 kg 44.1 kg/m2 130/80 mm[Hg] 03/06/2020 09:45AM Office 30 Height Weight BMI 158.75 cm 104.33 kg 41.4 kg/m2 01/23/2020 09:30AM Office 30 Height Weight BMI Blood Pressure 158.75 cm 104.87 kg 41.6 kg/m2 148/62 mm[Hg] 12/12/2019 10:45AM Office 30 Height Weight BMI 158.75 cm 102.06 kg 40.5 kg/m2 08/02/2019 08:15AM Acute 15 Height Blood Pressure 158.75 cm 146/78 mm[Hg] 04/13/2019 01:20PM HME 20 Height Weight BMI Blood Pressure 158.75 cm 109 kg 43.3 kg/m2 124/72 mm[Hg] 01/18/2019 10:00AM Procedure 20 with Visit Height Weight BMI Blood Pressure 158.75 cm 107.05 kg 42.5 kg/m2 138/68 mm[Hg] 12/20/2018 01:00PM Office 30 Height Weight BMI Blood Pressure 158.75 cm 107.82 kg 42.8 kg/m2 140/78 mm[Hg] 04/07/2018 08:30AM Office 30 Height Weight BMI Blood Pressure 158.75 cm 108.86 kg 43.2 kg/m2 137/79 mm[Hg] 01/26/2018 10:00AM Procedure 20 with Visit Height Weight BMI Blood Pressure 158.75 cm 111.13 kg 44.1 kg/m2 152/92 mm[Hg] 04/22/2017 Weight Blood Pressure 102.06 kg 166/84 mm[Hg] 03/24/2017 Height Weight Blood Pressure 158.75 cm 102.06 kg 138/78 mm[Hg] 02/06/2017 Height Weight Blood Pressure 161.29 cm 99.34 kg 160/86 mm[Hg] 02/05/2017 Height Weight Blood Pressure 161.29 cm 98.23 kg 161/85 mm[Hg] 06/18/2016 Height Weight Blood Pressure 161.29 cm 95.43 kg 141/75 mm[Hg] 05/13/2016 Height Weight Blood Pressure 161.29 cm 93.92 kg 137/96 mm[Hg] 04/02/2016 Height Weight Blood Pressure 161.29 cm 94.37 kg 158/97 mm[Hg] 04/05/2014 Height 162.56 cm 03/29/2007 Height Weight 170.18 cm 127.01 kg 03/10/2007 Height Weight 170.18 cm 127.01 kg 01/29/2007 Height Weight 167.64 cm 127.01 kg
[2020-09-10 19:13] LABS: HCT 43.3 % (36.0-46.0); HGB 14.2 g/dL (11.2-15.7); MCH 31.1 pg (27.0-33.0); MCHC 32.8 % (32.0-36.0); MPV 9.7 fL (8.0-11.0); Platelet Count 332 10^3/uL (130-400); RBC 4.56 10^6/uL (3.93-5.22); RDW 12.9 % (11.7-14.6); RDW-SD 45.5 fL; WBC 5.78 10^3/uL (4.4-10.8)
[2020-09-10 20:13] LABS: ALT 28 U/L (14-59); AST 23 U/L (15-37); Albumin 3.3 g/dL (3.4-5.0); Alkaline Phosphatase 105 U/L (46-116); Anion Gap 10.3 mmol/L (3-11); BUN 21 mg/dL (7-18); Bilirubin, Total 0.4 mg/dL (0.2-1.0); CO2 24.7 mmol/L (21.0-32.0); CREATININE 1.3 mg/dL (0.55-1.02); Calcium 9.4 mg/dL (8.5-10.1); Chloride 105 mmol/L (98-107); Estimated GFR 39.72 (mL/min/1.73m2); Glucose 92 mg/dL (74-106); Potassium 4.7 mmol/L (3.5-5.1); Sodium 140 mmol/L (136-145); TSH 1.49 uIU/mL (0.36-3.74); Total Protein 6.4 g/dL (6.4-8.2); Vitamin B12 380 pg/mL (193-986)
== END 2020-09-10 15:44 | disposition home or self-care (01) ==
LOC: NCHCN 15:43
PROVIDERS: PCP Internal Medicine; Visit Provider Internal Medicine
DX: F32.9 Major depressive disorder, single episode, unspecified (principal); G60.9 Hereditary and idiopathic neuropathy, unspecified
CPT/HCPCS: 80053; 85027; 82607; 84443

== ENCOUNTER → 2020-09-19 13:49 | Outpatient (BNVA) | payer MEDICARE, BC, SELFPAY | PROVIDERS: PCP Internal Medicine; Referring Provider Internal Medicine; Visit Provider Psychiatry & Neurology Neurology | DX: R25.1 Tremor, unspecified (principal); R29.6 Repeated falls; I10 Essential (primary) hypertension | CPT/HCPCS: 99205 ==

== ENCOUNTER 2021-09-16 15:08 | Outpatient (REF) | payer MEDICARE, BC, SELFPAY ==
[2021-09-16 19:44] LABS: HCT 46.5 % (36.0-46.0); MCH 31.4 pg (27.0-33.0); MCHC 32.3 % (32.0-36.0); MCV 97.3 fL (80-95); MPV 10.4 fL (8.0-11.0); Platelet Count 314 10^3/uL (130-400); RBC 4.78 10^6/uL (3.93-5.22); RDW 13.1 % (11.7-14.6); RDW-SD 47.1 fL; WBC 6.43 10^3/uL (4.4-10.8)
[2021-09-16 19:50] LABS: Anion Gap 8.4 mmol/L (3-11); BUN 24 mg/dL (7-18); CO2 25.6 mmol/L (21.0-32.0); CREATININE 1.1 mg/dL (0.55-1.02); Calcium 9.3 mg/dL (8.5-10.1); Chloride 107 mmol/L (98-107); Estimated GFR 48.04 (mL/min/1.73m2); Glucose 95 mg/dL (74-106); Sodium 141 mmol/L (136-145)
[2021-09-17 08:55] LABS: TSH 1.37 uIU/mL (0.36-3.74)
== END 2021-09-16 15:09 | disposition home or self-care (01) ==
LOC: NCHCN 15:08
PROVIDERS: PCP Internal Medicine; Visit Provider Internal Medicine
DX: G25.2 Other specified forms of tremor (principal); I10 Essential (primary) hypertension; G25.0 Essential tremor
CPT/HCPCS: 80048; 85027; 83735; 84443

== ENCOUNTER 2022-11-05 13:14 | Outpatient (REF) | payer MEDICARE, BC, SELFPAY ==
[2022-11-05 21:45] LABS: Abs Immature Grans 0.03 10^3/uL (0.0-0.06); Absolute Basophil Count 0.04 10^3/uL (0.0-0.2); Absolute Eosinophil Count 0.09 10^3/uL (0.0-0.7); Absolute Lymphocyte Count 0.78 10^3/uL (1.2-3.4); Absolute Monocyte Count 0.89 10^3/uL (0.1-0.8); Absolute Neutrophil Count 4.77 10^3/uL (1.2-6.7); Basophils % 0.6; Eosinophils % 1.4; HCT 42.8 % (36.0-46.0); HGB 13.9 g/dL (11.2-15.7); Immature Grans % 0.5; Lymphocytes % 11.8; MCH 30.8 pg (27.0-33.0); MCHC 32.5 % (32.0-36.0); MCV 95 fL (80-95); MPV 10.7 fL (8.0-11.0); Monocytes % 13.5; Neutrophils % 72.2; Platelet Count 289 10^3/uL (130-400); RBC 4.52 10^6/uL (3.93-5.22)
[2022-11-05 22:17] LABS: Anion Gap 8.1 mmol/L (3-11); BUN 30 mg/dL (7-18); CO2 27.9 mmol/L (21.0-32.0); CREATININE 1.2 mg/dL (0.55-1.02); Calcium 9.2 mg/dL (8.5-10.1); Chloride 105 mmol/L (98-107); Estimated GFR 46.05 (mL/min/1.73m2); Glucose 102 mg/dL (74-106); Magnesium 1.7 mg/dL (1.8-2.4); Sodium 141 mmol/L (136-145); TSH 1.23 uIU/mL (0.36-3.74)
== END 2022-11-05 13:15 | disposition home or self-care (01) ==
LOC: NCHCN 13:14
PROVIDERS: PCP Internal Medicine; Visit Provider Internal Medicine
DX: R25.2 Cramp and spasm (principal); R53.83 Other fatigue
CPT/HCPCS: 80048; 83735; 84443; 85025

== ENCOUNTER 2023-07-03 18:14 | Outpatient (REF) | payer MEDICARE, BC, SELFPAY ==
[2023-07-03 18:39] LABS: Hemoglobin A1C 5.8 % (<5.7)
== END 2023-07-03 18:15 | disposition home or self-care (01) ==
LOC: NCHCN 18:14
PROVIDERS: PCP Internal Medicine; Visit Provider Internal Medicine
DX: R73.03 Prediabetes (principal)
CPT/HCPCS: 83036

== ENCOUNTER 2023-10-28 13:19 | Outpatient (REF) | payer MEDICARE, BC, SELFPAY ==
[2023-10-28 19:53] LABS: HCT 41.1 % (36.0-46.0); HGB 13.5 g/dL (11.2-15.7); MCH 31.1 pg (27.0-33.0); MCHC 32.8 % (32.0-36.0); MCV 95 fL (80-95); MPV 10.6 fL (8.0-11.0); Platelet Count 424 10^3/uL (130-400); RBC 4.34 10^6/uL (3.93-5.22); RDW 13.3 % (11.7-14.6); RDW-SD 46.6 fL; WBC 6.65 10^3/uL (4.4-10.8)
[2023-10-28 20:07] LABS: ALT 197 U/L (14-59); AST 111 U/L (15-37); Albumin 2.6 g/dL (3.4-5.0); Alkaline Phosphatase 782 U/L (46-116); Anion Gap 12.6 mmol/L (3-11); BUN 22 mg/dL (7-18); Bilirubin, Total 1.1 mg/dL (0.2-1.0); CO2 21.4 mmol/L (21.0-32.0); CREATININE 1.2 mg/dL (0.55-1.02); Calcium 8.9 mg/dL (8.5-10.1); Chloride 106 mmol/L (98-107); Estimated GFR 45.76 (mL/min/1.73m2); Glucose 151 mg/dL (74-106); Potassium 4.1 mmol/L (3.5-5.1); Sodium 140 mmol/L (136-145); Total Protein 6.5 g/dL (6.4-8.2)
[2023-10-29 18:13] LABS: Folate 22.4 ng/mL (See Note)
[2023-10-29 18:34] LABS: Vitamin B12 707 pg/mL (193-986)
== END 2023-10-28 13:20 | disposition home or self-care (01) ==
LOC: NCHCN 13:19
PROVIDERS: PCP Internal Medicine; Visit Provider Internal Medicine
DX: E46 Unspecified protein-calorie malnutrition (principal)
CPT/HCPCS: 80053; 82306; 85027; 82607; 82746

== ENCOUNTER 2024-10-05 15:16 | Outpatient (REF) | payer MEDICARE, BC, SELFPAY ==
[2024-10-05 20:37] LABS: Anion Gap 8.1 mmol/L (3-11); BUN 19 mg/dL (7-18); CO2 25.9 mmol/L (21.0-32.0); CREATININE 1.1 mg/dL (0.55-1.02); Calcium 9.5 mg/dL (8.5-10.1); Calculated LDL 61 mg/dL (<100); Chloride 107 mmol/L (98-107); Cholesterol 129 mg/dL (<200); Estimated GFR 50.48 (mL/min/1.73m2); Glucose 86 mg/dL (74-106); HDL Cholesterol 55 mg/dL (>or=50); Potassium 5.4 mmol/L (3.5-5.1); Sodium 141 mmol/L (136-145); Triglyceride 68 mg/dL (<150)
[2024-10-06 19:39] LABS: Hepatitis C Ab w Rflx HCV PCR Negative (Negative)
== END 2024-10-05 15:17 | disposition home or self-care (01) ==
LOC: NCHCN 15:16
PROVIDERS: PCP Internal Medicine; Visit Provider Internal Medicine
DX: I10 Essential (primary) hypertension (principal); Z11.4 Encounter for screening for human immunodeficiency virus [HIV]; E78.5 Hyperlipidemia, unspecified
CPT/HCPCS: 80048; 80061; 86803

== ENCOUNTER 2024-10-28 10:44 | Outpatient (REF) | payer MEDICARE, BC, SELFPAY ==
[2024-10-28 19:07] LABS: Anion Gap 9.8 mmol/L (3-11); BUN 13 mg/dL (7-18); CO2 25.2 mmol/L (21.0-32.0); CREATININE 1.1 mg/dL (0.55-1.02); Calcium 9.3 mg/dL (8.5-10.1); Chloride 109 mmol/L (98-107); Estimated GFR 50.48 (mL/min/1.73m2); Glucose 121 mg/dL (74-106); Potassium 4.1 mmol/L (3.5-5.1); Sodium 144 mmol/L (136-145)
== END 2024-10-28 10:45 | disposition home or self-care (01) ==
LOC: NCHCN 10:44
PROVIDERS: PCP Internal Medicine; Visit Provider Internal Medicine
DX: I10 Essential (primary) hypertension (principal)
CPT/HCPCS: 80048

== ENCOUNTER 2025-04-10 15:04 | Outpatient (REF) | payer MEDICARE, BC, SELFPAY ==
[2025-04-10 19:52] LABS: HCT 42.3 % (36.0-46.0); HGB 13.7 g/dL (11.2-15.7); MCH 31.0 pg (27.0-33.0); MCHC 32.4 % (32.0-36.0); MCV 96 fL (80-95); MPV 9.8 fL (8.0-11.0); Platelet Count 298 10^3/uL (130-400); RBC 4.42 10^6/uL (3.93-5.22); RDW 13.2 % (11.7-14.6); RDW-SD 46.5 fL; WBC 6.19 10^3/uL (4.4-10.8)
[2025-04-10 20:11] LABS: Ferritin 210 ng/mL (8-252)
== END 2025-04-10 15:05 | disposition home or self-care (01) ==
LOC: NCHCN 15:04
PROVIDERS: PCP Internal Medicine; Visit Provider Internal Medicine
DX: R53.83 Other fatigue (principal)
CPT/HCPCS: 85027; 82728